=== PATIENT | male | born 1975 | race Caucasian/White ===

== ENCOUNTER → 2016-10-19 | Emergency (ER) | payer OTHER ==
[2016-10-19 10:09] VITALS: BP 142/85; PULSE 78; RESP 18; TEMP 97.9; O2SAT 96
--- NOTE | 2016-10-19 10:53 | UCPHY ---
H & P Time Seen by Provider: 10/19/16 10:35 Patient Type: Established HPI/ROS: This patient has a sore throat. He describes this as moderate pain is worse with swallowing. He has had the symptoms over the past 5 days but the pain increased over the past 24 hours. He reports no other exacerbating factors except for mild relief from [id number] analgesics. ROS: No high fevers or chills. HEENT: No ear pain. He does have nasal congestion associated with this. Pulmonary: No cough GI: No vomiting 7 point ROS is otherwise negative. Past Medical/Surgical History: Sinus infection September 29 treated with Augmentin with resolution of sinus symptoms. He also had a sore throat at that time the transiently improved. Smoking Status: Former smoker Physical Exam: Physical Exam Vital signs are normal. General: No acute distress HEENT: Nose: Clear discharge bilaterally. No sinus tenderness to percussion. Ears: External canals and tympanic membranes are clear with no erythema or abnormal findings bilaterally. Oropharynx: Minimal erythema. No exudates.. No dysphonia. No drooling or stridor. Eyes: Pupils equal and react to light. Extraocular motions are intact. Lungs: Clear to auscultation bilaterally with no rales, rhonchi or wheeze. No respiratory distress. Cardiac: Regular rate and rhythm with no murmur gallop or rub Skin: No rash or pallor. Neuro: Alert with no focal deficits noted. Initial differential diagnosis: Viral pharyngitis versus strep pharyngitis. Constitutional: Initial Vital Signs Temperature (C) 36.6 C 10/19/16 09:50 Heart Rate 78 10/19/16 09:50 Respiratory Rate 18 10/19/16 09:50 Blood Pressure 142/85 H 10/19/16 09:50 O2 Sat (%) 96 10/19/16 09:50 O2 Delivery Mode Room Air Allergies/Adverse Reactions: No Known Allergies Allergy (Verified 10/19/16 09:43) Home Medications: Medication Instructions Recorded Omeprazole Unk Dose 04/26/16 Medical Decision Making ED Course/Re-evaluation: Studies: Rapid strep is negative I counseled patient regarding viral pharyngitis - Data Points Laboratory Results: 10/19/16 10/19/16 Unknown 09:35 Group A Strep Screen NEGATIVE (NEGATIVE) Group A Strep DNA Pending Departure - Departure Disposition: Home, Routine, Self-Care Clinical Impression: Viral pharyngitis Condition: Good Instructions: Pharyngitis (ED) Additional Instructions: Diagnosis: Viral pharyngitis Plan: Ibuprofen and Tylenol exclusion-rinse gargle spit in addition if needed. Her symptoms should improve over the next 3-5 days. Referrals: LEATHA RIGGINS [Primary Care Provider] - As per Instructions - PQRS PQRS Measurement: NA
== END | disposition home or self-care (01) ==
LOC: CED 09:21
DX: J02.9 Acute pharyngitis, unspecified (principal); Z87.891 Personal history of nicotine dependence
CPT/HCPCS: 87880-PO; 99214-PO; G0463-PO